=== PATIENT | female | born 1985 | race Caucasian/White ===

== ENCOUNTER 2018-11-08 10:14 | Observation (INO) | payer BC ==
[~2018-11-08] VITALS: Ht 157.5 cm; Wt 57.2 kg
[2018-11-08] MEDS ORDERED: SOD CHLORIDE 0.9% 0 ML IV ONE (10:23)
--- NOTE | 2018-11-08 11:45 | ERD ---
ER Documentation Chief Complaint Chief Complaint sent by [facility] - low hgb level 6.7 HPI This is a 33-year-old female who presents for evaluation of low hemoglobin. Patient has a history of anemia, and has had anemia in the past that has never required a transfusion before, she is currently at about 7 weeks. She has not received an ultrasound, she denies any bleeding, she denies any abdominal pain. She has no fever. ROS All systems reviewed and are negative except as per history of present illness. Medications Home Meds No Active Prescriptions or Reported Meds Allergies Allergies: Coded Allergies: No Known Allergy (Unverified , 11/08/18) PMhx/Soc Medical and Surgical Hx: pt denies Medical Hx, pt denies Surgical Hx Hx Alcohol Use: No Hx Substance Use: No Hx Tobacco Use: No Smoking Status: Never smoker Physical Exam Vitals Vital Signs Date Temp Pulse Resp B/P (MAP) Pulse Ox O2 O2 Flow FiO2 Time Delivery Rate 11/08/18 98.0 68 20 118/68 99 Room Air 12:15 (85) 11/08/18 99.0 93 18 138/60 100 10:18 (86) Physical Exam Const: Well-appearing, nontoxic Head: Atraumatic Eyes: Normal Conjunctiva ENT: Normal External Ears, Nose and Mouth. Neck: Full range of motion. No meningismus. Resp: Clear to auscultation bilaterally Cardio: Regular rate and rhythm, no murmurs Abd: Soft, non tender, non distended. Normal bowel sounds Skin: No petechiae or rashes Back: No midline or flank tenderness Ext: No cyanosis, or edema Neur: Awake and alert Psych: Normal Mood and Affect Result Diagram: 11/08/18 1037 Results 24 hrs Laboratory Tests Test 11/08/18 10:37 White Blood Count 5.9 10^3/ul Red Blood Count 4.09 10^6/ul Hemoglobin 6.7 g/dl Hematocrit 26.3 % Mean Corpuscular Volume 64.3 fl Mean Corpuscular Hemoglobin 16.4 pg Mean Corpuscular Hemoglobin Concent 25.5 g/dl Red Cell Distribution Width 19.6 % Platelet Count 390 10^3/UL Mean Platelet Volume 9.1 fl Immature Granulocytes % 0.200 % Neutrophils % 67.1 % Segmented Neutrophils % (Manual) 61 % Lymphocytes % 23.6 % Lymphocytes % (Manual) 28 % Monocytes % 7.7 % Monocytes % (Manual) 9 % Eosinophils % 0.9 % Eosinophils % (Manual) 1 % Basophils % 0.5 % Basophils % (Manual) 1 % Nucleated Red Blood Cells % 0.0 /100WBC Immature Granulocytes # 0.010 10^3/ul Neutrophils # 4.0 10^3/ul Lymphocytes (Manual) 1.6 10^3/ul Lymphocytes # 1.4 10^3/ul Monocytes # 0.5 10^3/ul Monocytes # (Manual) 0.5 10^3/ul Eosinophils # 0.1 10^3/ul Basophils # 0.0 10^3/ul Basophils # (Manual) 0.0 10^3/ul Nucleated Red Blood Cells # 0.0 10^3/ul Pathologist Review (Hematology) YES Platelet Estimate NORMAL Polychromasia 2+ Hypochromasia 3+ Poikilocytosis 1+ Anisocytosis 3+ Microcytosis 3+ Beta HCG, Quantitative 83851.0 mIU/ml Current Medications Medications Dose Sig/William Start Time Status Last (Trade) Ordered Route PRN Stop Time Admin Dose Reason Admin Sodium 0 ml @ 0 Q0M ONCE 11/08/18 DC 11/08/18 Chloride mls/hr IV 10:23 10:23 11/08/18 11:57 IV Flush 3 ml PER 11/08/18 (NS 3 ml) PROTOCOL IV 14:00 Procedures/MDM This is a 33-year-old female, who is currently at 7 weeks estimated gestational age based on her ultrasound who presents for anemia with a hemoglobin of 6.7. I discussed findings with the patient, and she consented for blood transfusion, her ultrasound was performed to evaluate for signs of ectopic , but this was ruled out with a confirmed live IUP estimated at 7 weeks and 1 day, wi th no evidence of free fluid. The patient had no abdominal pain and remained stable in the ED, she will be admitted to medicine. Accepting Care Team: Current data and ongoing care discussed. Primary: Candice Consulting: Pending Outstanding Data: none Departure Diagnosis: Primary Impression: Anemia Anemia type: unspecified type Qualified Codes: D64.9 - Anemia, unspecified Additional Impression: Weeks of gestation: less than 8 weeks Qualified Codes: Z3A.01 - Less than 8 weeks gestation of Condition: Stable BEV PAREDES MD Nov 08, 2018 11:45
--- NOTE | 2018-11-08 13:39 | HP ---
Date/Time of Note Date/Time of Note DATE: 11/08/18 TIME: 13:36 Assessment/Plan VTE Prophylaxis Pharmacological prophylaxis: fondaparinux Lines/Catheters IV [facility] Saline Lock Assessment/Plan Hospital Course 33 yo female 10 weeks pregnany with incidentally found microcytic anemia as part of care visit Anemia: - Most likely this is an iron deficiency anemia as a result of menorrhagia - 2 units PRBCs tranfusing - Await iron studies. If confirmed iron deficient will discharge on iron supplementation and follow up in clinic for further management Result Diagram: 11/08/18 1037 Results 24hrs Laboratory Tests Test 11/08/18 10:37 White Blood Count 5.9 Red Blood Count 4.09 L Hemoglobin 6.7 *L Hematocrit 26.3 L Mean Corpuscular Volume 64.3 L Mean Corpuscular Hemoglobin 16.4 L Mean Corpuscular Hemoglobin Concent 25.5 L Red Cell Distribution Width 19.6 H Platelet Count 390 Mean Platelet Volume 9.1 Immature Granulocytes % 0.200 Neutrophils % 67.1 Segmented Neutrophils % (Manual) 61 Lymphocytes % 23.6 Lymphocytes % (Manual) 28 Monocytes % 7.7 Monocytes % (Manual) 9 Eosinophils % 0.9 Eosinophils % (Manual) 1 Basophils % 0.5 Basophils % (Manual) 1 Nucleated Red Blood Cells % 0.0 Immature Granulocytes # 0.010 Neutrophils # 4.0 Lymphocytes (Manual) 1.6 Lymphocytes # 1.4 Monocytes # 0.5 Monocytes # (Manual) 0.5 Eosinophils # 0.1 Basophils # 0.0 Basophils # (Manual) 0.0 Nucleated Red Blood Cells # 0.0 Pathologist Review (Hematology) YES Platelet Estimate NORMAL Polychromasia 2+ Hypochromasia 3+ Poikilocytosis 1+ Anisocytosis 3+ Microcytosis 3+ Beta HCG, Quantitative 49555.0 HPI/ROS Admit Date/Time Admit Date/Time Hx of Present Illness 33 yo female without PMH currently 10 weeks referred to ED for anemia Patient had labs drawn as part of routine care. Showed Hgb 6 with MCV 65, other cell lines wnl. Sent to ED by PMD for managment. She denies any melena or hematemasis. Last period was in august, had heavy periods prior to . Feels well. Only complaint is being very hungry. Very much wants to be discharged ROS Constitutional: no complaints, improved Eyes: no complaints ENT: no complaints Respiratory: no complaints Cardiovascular: no complaints Gastrointestinal: no complaints Genitourinary: no complaints Musculoskeletal: no complaints Skin: no complaints Neurologic: no complaints Endocrine: no complaints Lymphatic: no complaints Psychological: no complaints, nl mood/affect Immunologic: no complaints PMH/Family/Social Past Medical History Medical History: no pertinent history Coded Allergies: No Known Allergy (Unverified , 11/08/18) Past Surgical History Past Surgical Hx: no surgical history Family History Significant Family History: no pertinent family hx Social History Alcohol Use: none Smoking Status: Never smoker Drug Use: none Exam/Review of Systems Vital Signs Vitals Vital Signs Date Temp Pulse Resp B/P (MAP) Pulse Ox O2 O2 Flow FiO2 Time Delivery Rate 11/08/18 98.0 68 20 118/68 99 Room Air 12:15 (85) Exam Constitutional: alert, oriented, well developed Psych: no complaints, nl mood/affect Head: normocephalic, atraumatic Eyes: nl conjunctiva, EOMI, nl lids, nl sclera, PERRL ENMT: nl external ears & nose, nl lips & teeth, nl nasal mucosa & septum Neck: supple, non-tender Respiratory: clear to auscultation, normal air movement Cardiovascular: regular rate and rhythm, nl pulses Gastrointestinal: soft, nl liver, spleen, non-tender Musculoskeletal: nl extremities to inspection Extremities: normal pulses Neurological: TREE [employer]ER II-XII intact, nl mental status, nl speech, nl strength Skin: nl turgor; No rash or lesions Lymph: nl lymph nodes ANKUSH VANN MD Nov 08, 2018 13:39
[2018-11-08] MEDS ORDERED: NACL 0.9% 3 ML SYG IV SCH (14:00)
[2018-11-08 16:22] VITALS: BP 114/75; PULSE 97; RESP 20
[2018-11-08 17:00] VITALS: Ht 157.5 cm; Wt 57.2 kg
[2018-11-08] MEDS ORDERED: FER325 PO (17:32)
--- NOTE | 2018-11-08 17:34 | PDOCDIS ---
Discharge Instructions DIAGNOSIS Discharge Diagnosis Iron deficiency anemia CONDITION [id number] Patient Condition: [id number] Stable FOLLOW UP/APPOINTMENTS Follow-up Plan You have been diagnosed with iron deficiency anemia. It is very important to take iron supplementation every day. Please check in with your doctor regularly about this problem and have your blood work checked again in the next couple weeks ANKUSH VANN MD Nov 08, 2018 17:34
--- NOTE | 2018-11-09 17:14 | DS ---
Date/Time of Note Date/Time of Note DATE: 11/09/18 TIME: 17:13 Discharge Summary Admission/Discharge Info Admit Date/Time Nov 08, 2018 at 11:43 Discharge Date/Time Nov 08, 2018 at 19:30 Discharge Diagnosis Iron deficiency anemia Patient Condition: Stable Hx of Present Illness 33 yo female without PMH currently 10 weeks referred to ED for anemia Patient had labs drawn as part of routine care. Showed Hgb 6 with MCV 65, other cell lines wnl. Sent to ED by PMD for managment. She denies any melena or hematemasis. Last period was in august, had heavy periods prior to . Feels well. Only complaint is being very hungry. Very much wants to be discharged Hospital Course 33 yo female 10 weeks pregnany with incidentally found microcytic anemia as part of care visit She had no evidence of active bleeding. Source of anemia likely from menorrhagia She was given 2 units PRBCs. She was prescribed iron supplementation She requested to be discharged following PRBCs transfusion Home Meds Active Scripts Ferrous Sulfate* (Ferrous Sulfate*) 325 Mg Tabec, 325 MG PO BID for 60 Days, #120 TAB Prov:ANKUSH VANN MD 11/08/18 Follow-up Plan You have been diagnosed with iron deficiency anemia. It is very important to take iron supplementation every day. Please check in with your doctor regularly about this problem and have your blood work checked again in the next couple weeks Primary Care Provider Care Physician No Primary Pending Labs Laboratory Tests Test 11/09/18 08:58 Lab Scanned Report BLOOD TRANSFUSION ANKUSH VANN MD Nov 09, 2018 17:14
== END 2018-11-08 19:30 | disposition home or self-care (01) ==
LOC: E/R 10:14 → 5EC 11:43 → EDBEDREQ 13:00 → SUATTDRO 13:09
PROVIDERS: ADMIT Internal Medicine; ATTEND Internal Medicine
DX: O99.011 Anemia complicating pregnancy, first trimester (principal); D50.9 Iron deficiency anemia, unspecified; Z3A.10 10 weeks gestation of pregnancy
CPT/HCPCS: 36430; 76801; 82728; 83010; 83540; 84702; 85025; 86850; 86900; 86901; 86920; J7040; P9016; Z7500; 99217; G0378